=== PATIENT | male | born 1970 | race Caucasian/White ===

== ENCOUNTER 2017-05-06 15:57 | Emergency (ER) | payer OTHER ==
[~2017-05-06] VITALS: Ht 172.7 cm; Wt 83.9 kg
[~2017-05-06 15:57] MED LIST: AMOXICILLIN500 M1 PO; AMOXICILLIN500 M3 PO; AMOXIL500 MG PO; BACTRIM DS 8001 TAB PO; BACTRIM DS TAB1 EACH PO; EC NAPROSYN500 MG PO; IBUPROFEN800 M1 PO; PERCOCET 5-3251 EACH PO; PROAIR HFA0.09 MG/Ac INH; VALACYCLOVIR1 GM PO
[2017-05-06] MEDS ORDERED: PROAIR HFA8.5 GM INH (18:37)
[2017-05-06 18:38] VITALS: BP 142/77
[2017-05-06] MEDS ORDERED: CLOTRIMAZOLE15 GM TOP (20:01)
--- NOTE | 2017-05-06 20:02 | ED GENERAL ADULT ---
History of Present Illness General Chief Complaint: General Adult Stated Complaint: ?SKIN INFECTION ON BOTH FEET Source: patient Exam Limitations: no limitations Vital Signs & Intake/Output Vital Signs & Intake/Output Vital Signs Date Time Temp Pulse Resp B/P B/P Pulse O2 O2 Flow FiO2 Mean Ox Delivery Rate 05/06 1838 97.8 68 142/77 96 Room Air 05/06 1827 97 Room Air 05/06 1601 98.6 76 18 157/84 98 Room Air Allergies Uncoded Allergies: PET HAIR/DANDER (EYES SWELL AND ITCH, FACIAL HIVES 12/15/14) Reconcile Medications Albuterol Sulfate (Proair Hfa) 90 MCG HFA.AER.AD 2 PUF INH PRN ASTHMA ( Reported) Clotrimazole 1 % CREAM..G. 1 RUSS TOP QAMPM balinitis/athletes foot apply to affected area(s) Triage Note: 46 YO MALE TO TRIAGE C/O "BLISTERS" TO BILATERAL FEET AND "I THINK IM GETTING SOME IN MY MOUTH" STATES THEY HAVE BEEN THERE FOR A COUPLE, STATES BLISTERS ARE PAINFUL AND ITCHY Triage Nurses Notes Reviewed? yes Onset: Abrupt Duration: day(s):, constant Timing: recent history Injury Environment: home No Modifying Factors: none HPI: 46-year-old male comes into emergency room for further evaluation of rash to his feet bilaterally. Itching. Some open sores. Patient reports that he also has a sore the tip of his penis that he wanted to have evaluated. Some burning with urination. Sexually active with one partner. Patient was told long time ago that he may have herpes but it was never confirmed. Denies any vomiting fever or chills. Denies any associated symptoms. Past History Travel History Traveled to [place] past 21 day No Medical History Any Pertinent Medical History? 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 No Review of Systems Review of Systems Constitutional: Reports: no symptoms. EENTM: Reports: no symptoms. Respiratory: Reports: no symptoms. Cardiovascular: Reports: no symptoms. GI: Reports: no symptoms. Genitourinary: Reports: see HPI. Musculoskeletal: Reports: no symptoms. Skin: Reports: see HPI. Neurological/Psychological: Reports: no symptoms. Hematologic/Endocrine: Reports: no symptoms. Immunologic/Allergic: Reports: no symptoms. All Other Systems: Reviewed and Negative Physical Exam Physical Exam General Appearance: well developed/nourished, alert, awake Head: atraumatic Eyes: Bilateral: normal appearance. Ears, Nose, Throat: normal ENT inspection, hearing grossly normal Neck: normal inspection Respiratory: no respiratory distress Back: normal inspection Extremities: normal range of motion Neurologic/Psych: awake, alert, normal gait, normal mood/affect Skin: intact, rash, cracking of the skin between the toes, Comments: tip of Penis beefy-red on left side, no discharge, covering about 30% of the glans penis, no lesions on testicles, no testicular pain, Core Measures ACS in differential dx? No CVA/TIA Diagnosis: No Severe Sepsis Present: No Septic Shock Present: No Progress Differential Diagnoses I considered the following diagnoses in my evaluation of the patient: Balanitis , athlete's foot, herpes, gonorrhea and chlamydia, HIV, syphilis, Plan of Care: Orders Procedure Date/time Status Add-on Test (ER Only) 05/06 1955 Active CULTURE,URINE 05/06 1925 Active URINALYSIS 05/06 1921 Complete Laboratory Tests 05/06/171924: Urinalysis LIGHT H, Urine Color YEL, Urine Clarity HAZY H, Urine pH 6.0, Ur Specific [place] >= 1.030, Urine Protein 30 H, Urine Ketones 40 H, Urine Nitrite NEG, Urine Bilirubin SMALL H, Urine Urobilinogen 1.0, Ur Leukocyte Esterase NEG, Ur Microscopic SEDIMENT EXAMINED, Urine RBC 25-50 H, Urine WBC 3- 5 H, Ur Epithelial Cells RARE, Urine Bacteria FEW H, Urine Hemoglobin LARGE H , Urine Glucose NEG Microbiology 05/06 1925 URINE ROUT: Urine Culture - RECD Initial ED EKG: none Departure Departure Disposition: HOME OR SELF CARE Condition: Stable Clinical Impression Primary Impression: Balanitis Secondary Impressions: Athletes foot Referrals: CHRIS FELIPE,TREVOR DANIELS MD,JUSTYN Maldonado (PCP/Family) Additional Instructions: Use clotrimazole cream as prescribed. Keep feet clean and dry. Follow-up with urologist provided. Return if any concerns worsening symptoms. Please go over all results of today's visit with your primary care doctor. Contact your primary care doctor to let them know you were here in the emergency room. There may be nonspecific findings which may not be related to your visit today here in the emergency room but may require further evaluation and chronic monitoring by your primary care doctor. If you had a laceration today the chance of foreign body always remains. You should follow-up with your primary care doctor for recheck in 3-5 days for a wound check. If you had an x-ray done there is a chance that a fracture could have been missed on initial read and you should follow-up with your primary care doctor for repeat x-rays if symptoms persist. If your blood pressure was elevated here in the emergency room please have rechecked by her primary care doctor within the next 48 hours by your primary care doctor. If you were prescribed a narcotic here in the emergency room or any type of controlled substances you're not allowed to drive while taking this medication or operate any type of heavy machinery. Narcotics can make you feel lightheaded dizziness nausea and can cause constipation. You may need to greens picker a stool softener. Thank you for choosing [facility] emergency room. Please return to the emergency room immediately if you have any other concerns worsening of symptoms. Departure Forms: Customer Survey General Discharge Information Prescriptions: Current Visit Scripts Clotrimazole 1 [facility] GM Ref 1 apply to affected area(s) Comments 05/06/2017 8:25:04 PM Patient was referred to urologist. Use topical clotrimazole cream. Return if any concerns. Most consistent with balanitis versus herpes at this time. Better hygiene at home. Understands and agrees with plan of care. Clinically looks well. Nontoxic-appearing. Critical Care Note Critical Care Note Critical Care Time: non-applicable
== END 2017-05-06 20:05 ==
LOC: ERH 15:57
DX: N48.1 Balanitis (principal); B35.3 Tinea pedis
CPT/HCPCS: 81001; 87086